=== PATIENT | female | born 1975 | race Caucasian/White ===

== ENCOUNTER 2018-11-06 13:03 | Emergency (ER) | payer BC ==
[2018-11-06 13:14] VITALS: BP 139/91
--- NOTE | 2018-11-06 14:19 | UC ---
Respiratory Complaint HPI - HPI Summary HPI Summary: 43 y/o female presents to the urgent care c/o rib rolly vs ruq pain x 2 weeks - History of Current Complaint Chief Complaint: UCGeneralIllness Stated Complaint: RIB COMPLAINT Time Seen by Provider: 11/06/18 14:17 Hx Obtained From: Patient Hx Last Menstrual Period: 08/26/16 Pain Intensity: 8 - Allergies/Home Medications Allergies/Adverse Reactions: Allergies Allergy/AdvReac Type Severity Reaction Status Date / Time aspirin Allergy rash Verified 11/06/18 13:15 swelling neomycin Allergy Swelling Verified 11/06/18 13:15 ENVIRONMENTAL/SEASONAL Allergy SNEEZING, Uncoded 11/06/18 13:15 ITCHING WATERY EYES, RUNNY NOSE PMH/Surg Hx/FS Hx/Imm Hx - Surgical History Surgical History: Yes Surgery Procedure, Year, and Place: 2006 , [facility], breast augmentation - Family History Known Family History: Positive: Unknown, Cardiac Disease, Hypertension - Social History Alcohol Use: Occasionally Substance Use Type: None Smoking Status (MU): Heavy Every Day Tobacco Smoker Type: Cigarettes Amount Used/How Often: 1 PPD Length of Time of Smoking/Using Tobacco: 20 YEARS Have You Smoked in the Last Year: Yes Household Exposure Type: Cigarettes Physical Exam Vital Signs: Initial Vital Signs Temp 98 F 11/06/18 13:11 Pulse 105 11/06/18 13:11 Resp 20 11/06/18 13:11 BP 139/91 11/06/18 13:11 Pulse Ox 100 11/06/18 13:11 UC Diagnostic Evaluation - Laboratory O2 Sat by Pulse Oximetry: 100 Discharge - Discharge Plan Referrals: Hannah Friend NP [Primary Care Provider] -
--- NOTE | 2018-11-06 14:33 | UC ---
Cardiac HPI - HPI Summary HPI Summary: 43 y/o female presents to the urgent care c/o RT side anterior rib pain for the past 2 weeks. Pt reports pain has increase w/ the days specially w/ certain movements, coughing or deep breathing . Pain is usually dull, but when she rolls over night pain is sharp and stabbing. Pt has Hx of breast implants. Pt denies any trauma, fever, URI, cough, SOB, difficulty breathing, chest pain, abdominal pain, N/V/D. She doesn't like to take medications for pain, She has taking only children's Motrin 15ml PO yesterday. - History of Current Complaint Chief Complaint: UCGeneralIllness Stated Complaint: RIB COMPLAINT Time Seen by Provider: 11/06/18 14:17 Hx Obtained From: Patient Hx Last Menstrual Period: 08/26/16 Onset/Duration: Gradual Onset, Lasting Weeks - 2 weeks, Still Present, Worse Since - 2 days Timing: Intermittent Episodes Lasting: - seconds Initial Severity: Mild Current Severity: Moderate Pain Intensity: 8 - w/ movement Chest Pain Location: Right Anterior - rib pain exacerbated w/ movement, cough or deep breathing Character: Dull/Aching, Sharp/Stabbing - at times w/ certain movements Aggravating Factor(s): Movement, Deep Breaths Alleviating Factor(s): Rest, OTC Meds Associated Signs & Symptoms: Negative: Chest Pain, Headaches, Numbness, Tingling , SOB, Nausea/Vomiting, Palpitations, Cough, Back Pain, Abdominal Pain - Risk Factors Pulmonary Embolism Risk Factors: Negative Cardiac Risk Factors: Negative Atrial Fibrillation: Negative TAD Risk Factors: Negative - Allergy/Home Medications Allergies/Adverse Reactions: Allergies Allergy/AdvReac Type Severity Reaction Status Date / Time aspirin Allergy rash Verified 11/06/18 13:15 swelling neomycin Allergy Swelling Verified 11/06/18 13:15 ENVIRONMENTAL/SEASONAL Allergy SNEEZING, Uncoded 11/06/18 13:15 ITCHING WATERY EYES, RUNNY NOSE PMH/Surg Hx/FS Hx/Imm Hx Previously Healthy: Yes Respiratory History: Asthma - Surgical History Surgical History: Yes Surgery Procedure, Year, and Place: 2006 , [facility], breast augmentation - Family History Known Family History: Positive: Unknown, Cardiac Disease, Hypertension - Social History Occupation: Employed Full-time Lives: With Family Alcohol Use: Occasionally Substance Use Type: None Smoking Status (MU): Heavy Every Day Tobacco Smoker Type: Cigarettes Amount Used/How Often: 1 PPD Length of Time of Smoking/Using Tobacco: 20 YEARS Have You Smoked in the Last Year: Yes Household Exposure Type: Cigarettes Review of Systems All Other Systems Reviewed And Are Negative: Yes Constitutional: Positive: Negative Skin: Positive: Other - discrete swelling on the anterior Rt side mid rib Eyes: Positive: Negative ENT: Positive: Negative Respiratory: Positive: Negative Cardiovascular: Positive: Negative Gastrointestinal: Positive: Negative Genitourinary: Positive: Negative Motor: Positive: Negative Neurovascular: Positive: Negative Musculoskeletal: Positive: Other: - RT side anterior mid rib pain Neurological: Positive: Negative Psychological: Positive: Negative Is Patient Immunocompromised?: No Physical Exam - Summary Physical Exam Summary: Vital Signs Reviewed: Yes General: well developed, well nourished female sitting in the examining table w/ o any apparent distress Eyes: Positive: Conjunctiva Clear - PERRLA, EOMI, fundi grossly normal ENT: Positive: Normal ENT inspection, Hearing grossly normal, Pharynx normal, Nasal congestion - edematous and erythematous nasal mucosa, Nasal drainage - yellowish drainage, TMs normal. Negative: Tonsillar swelling, Tonsillar exudate Neck: Positive: Supple, Nontender, No Lymphadenopathy Respiratory: no orthopnea or dyspnea. Able to speak in full sentences, no retractions or accessory muscle use, no tripod position, stridor, or head bobbing. Positive breath sounds bilaterally. no wheezing, and rhonchi on b/L lungs, no crackles or rales. Point tenderness over the mid anterior rib #9-10 w / mild swelling, no echymosis or bruising observed. Cardiovascular: Positive: RRR, No Murmur, Pulses Normal, Brisk Capillary Refill Abdomen Description: Positive: Nontender, No Organomegaly, Soft. Negative: CVA Tenderness (R), CVA Tenderness (L) Bowel Sounds: Positive: Present Musculoskeletal Exam: Normal Musculoskeletal: Positive: Strength Intact, ROM Intact, No Edema Neurological Exam: Normal Psychological Exam: Normal Skin Exam: Normal Triage Information Reviewed: Yes Vital Signs: Initial Vital Signs Temp 98 F 11/06/18 13:11 Pulse 105 11/06/18 13:11 Resp 20 11/06/18 13:11 BP 139/91 11/06/18 13:11 Pulse Ox 100 11/06/18 13:11 - Assessment/Plan Course Of Treatment: 43 y/o female presents to the urgent care c/o RT side anterior rib pain for the past 2 weeks. Pt reports pain has increase w/ the days specially w/ certain movements, coughing or deep breathing . Pain is usually dull, but when she rolls over night pain is sharp and stabbing. Pt has Hx of breast implants. Pt denies any trauma, fever, URI, cough, SOB, difficulty breathing, chest pain, abdominal pain, N/V/D. She doesn't like to take medications for pain, She has taking only children's Motrin 15ml PO yesterday. Hx obtained. Pt is hemodynamically stable. RT Rib and Chest X-ray ordered to r/ o fracture. Impression:negative for fracture or pneumothorax as per radiologist. Pt Rx Ibuprofen PO and advised to f/u w/ her PCP or her plastic surgeon DR Soto since Hx of breast implants 2 years ago. D/C instructions explained. Pt's BP is elevated today advised to decrease salt in diet, monitor BP and f/u with PCP for further management. Pt understood and agreed w/ plan of care. left clinic ambulating and hemodynamically stable. - Differential Diagnoses - Chest Pain Differential Diagnosis/HQI/PQRI: Chest Wall - pain,, Lower Respiratory Infection , Pulmonary Embolism, Other: - costochondritis, rib fracture - Clinical Impression Provider Diagnosis: Rib pain on right side, Contusion of rib on right side, Elevated BP without diagnosis of hypertension Discharge - Sign-Out/Discharge Documenting (check all that apply): Patient Departure - D/C home All imaging exams completed and their final reports reviewed: Yes - Discharge Plan Condition: Stable Disposition: HOME Prescriptions: Ibuprofen TAB* [Motrin TAB* 600 MG] 600 mg PO Q6H PRN #30 tab PRN Reason: Pain Patient Education Materials: Low-Sodium Diet (ED), Rib Contusion (ED) Referrals: Hannah Friend, FIELD ENUMERATOR [Primary Care Provider] - 3 Days Additional Instructions: 1-Please take ibuprofen PO q6-8hrs prn as instructed after meals to alleviate pain and swelling. rest and avoid strenuous exercise or heavy lifting. Take deep breaths once in a while to expand lungs 2--If symptoms do not improve or worsen please f/u w/ your PCP or your Plastic surgeon DR Soto in 3 days sicne you have Hx of breast implants for further evaluation and treatment. 3-Your BP is elevated today. please decrease salt in your diet, monitor BP and if it continues to be elevated please f/u with your PCP for further management - Billing Disposition and Condition Condition: STABLE Disposition: Home
== END 2018-11-06 16:07 | disposition home or self-care (01) ==
LOC: UCEAST 13:03
DX: R07.81 Pleurodynia (principal); R03.0 Elevated blood-pressure reading, without diagnosis of hypertension; S20.211A Contusion of right front wall of thorax, initial encounter; X58.XXXA Exposure to other specified factors, initial encounter; Y93.9 Activity, unspecified; Y92.9 Unspecified place or not applicable; F17.210 Nicotine dependence, cigarettes, uncomplicated
CPT/HCPCS: 99212; G0463

== ENCOUNTER 2019-05-20 13:22 | Emergency (ER) | payer BC ==
--- NOTE | 2019-05-20 15:52 | UC ---
Skin Complaint HPI - HPI Summary HPI Summary: 43 y/o female presents to the urgent care c/o Wound on right leg- for one week. Now swelling and red with discharge. - History of Current Complaint Chief Complaint: UCLowerExtremity Time Seen by Provider: 05/20/19 15:27 Stated Complaint: WOUND ON LEG Hx Obtained From: Patient Hx Last Menstrual Period: 04/20/19 Pain Intensity: 4 - Allergy/Home Medications Allergies/Adverse Reactions: Allergies Allergy/AdvReac Type Severity Reaction Status Date / Time aspirin Allergy rash Verified 05/20/19 15:11 swelling neomycin Allergy Swelling Verified 05/20/19 15:11 ENVIRONMENTAL/SEASONAL Allergy SNEEZING, Uncoded 11/06/18 13:15 ITCHING WATERY EYES, RUNNY NOSE Home Medications: Home Medications Sertraline* [Zoloft*] 25 mg PO DAILY 05/20/19 [History Confirmed 05/20/19] PMH/Surg Hx/FS Hx/Imm Hx Previously Healthy: Yes Respiratory History: Asthma Other GI/ History: IBS Psychological History: Depression - Surgical History Surgical History: Yes Surgery Procedure, Year, and Place: 2006 , [facility], breast augmentation - Family History Known Family History: Positive: Cardiac Disease, Hypertension - Social History Occupation: Employed Full-time Lives: With Family Alcohol Use: Occasionally Substance Use Type: None Smoking Status (MU): Heavy Every Day Tobacco Smoker Type: Cigarettes Amount Used/How Often: 1 PPD Length of Time of Smoking/Using Tobacco: 20 YEARS Have You Smoked in the Last Year: Yes Household Exposure Type: Cigarettes Physical Exam Vital Signs: Initial Vital Signs Temp 98.4 F 05/20/19 15:07 Pulse 82 05/20/19 15:07 Resp 12 05/20/19 15:07 BP 126/87 05/20/19 15:07 Pulse Ox 97 05/20/19 15:07 Course/Dx - Differential Diagnoses - Skin Complaint Differential Diagnoses: Abscess, Cellulitis, Contact Dermatitis, Local Allergic Reaction, MRSA - Diagnoses Provider Diagnosis: Cellulitis of right lower leg Discharge - Sign-Out/Discharge Documenting (check all that apply): Patient Departure - D/C home All imaging exams completed and their final reports reviewed: No Studies - Discharge Plan Condition: Stable Disposition: HOME Prescriptions: Cephalexin CAP* [Keflex CAP*] 500 mg PO TID #21 cap Mupirocin 2% OINT* [Bactroban 2 % Oint*] 1 applic TOPICAL BID #1 tube Patient Education Materials: Cellulitis (ED) Referrals: Hannah Friend, INTERNATIONAL TRAVEL CONSULTANT [Primary Care Provider] - 3 Days Additional Instructions: 1-Please take full course of Antibiotic as directed. Take yogurts w/ probiotics or culturelle to protect your GI system 2- If redness and swelling doubles in size after 48 hrs s of taking antibiotic and fever develops please go to the ER immediately. 3-Avoid standing for long periods of time or flexing your foot, keep it elevated and keep wound clean and dry. Apply Bactroban topical cream as directed 4-Please F/u with your PCP in 3 days if symptoms are not improving for further evaluation and treatment. - Billing Disposition and Condition Condition: STABLE Disposition: Home - Attestation Statements Provider Attestation: I was available for consult. This patient was seen by the SALVDAOR. The patient was not presented to, seen by, or examined by me. -Hortencia
[2019-05-20 16:35] VITALS: BP 131/83
--- NOTE | 2019-05-20 21:55 | UC ---
- Progress Note Progress Note: call from lab wound + staph neg MRSA pt on keflex no change clarence 05/20/19 Course/Dx - Diagnoses Provider Diagnoses: Cellulitis of right lower leg Discharge - Sign-Out/Discharge Documenting (check all that apply): Post-Discharge Follow Up All imaging exams completed and their final reports reviewed: No Studies - Discharge Plan Condition: Stable Disposition: HOME Prescriptions: Cephalexin CAP* [Keflex CAP*] 500 mg PO TID #21 cap Mupirocin 2% OINT* [Bactroban 2 % Oint*] 1 applic TOPICAL BID #1 tube Patient Education Materials: Cellulitis (ED) Referrals: Hannah Friend, HEARING HEALTHCARE PRACTITIONER [Primary Care Provider] - 3 Days Additional Instructions: 1-Please take full course of Antibiotic as directed. Take yogurts w/ probiotics or culturelle to protect your GI system 2- If redness and swelling doubles in size after 48 hrs s of taking antibiotic and fever develops please go to the ER immediately. 3-Avoid standing for long periods of time or flexing your foot, keep it elevated and keep wound clean and dry. Apply Bactroban topical cream as directed 4-Please F/u with your PCP in 3 days if symptoms are not improving for further evaluation and treatment. - Billing Disposition and Condition Condition: STABLE Disposition: Home
--- NOTE | 2019-05-22 09:41 | UC ---
- Progress Note Progress Note: Right lower leg wound culture results: MRSA negative, staph aureus positive Gram stain: No neutrophils observed, 2+ gram positive cocci, 1+ gram-positive bacilli Preliminary culture report: Strep dysgalactiae(group C) 3+ Patient is already on Keflex and topical mupirocin No change in plan. Course/Dx - Diagnoses Provider Diagnoses: Cellulitis of right lower leg Discharge - Sign-Out/Discharge Documenting (check all that apply): Post-Discharge Follow Up All imaging exams completed and their final reports reviewed: No Studies - Discharge Plan Condition: Stable Disposition: HOME Prescriptions: Cephalexin CAP* [Keflex CAP*] 500 mg PO TID #21 cap Mupirocin 2% OINT* [Bactroban 2 % Oint*] 1 applic TOPICAL BID #1 tube Patient Education Materials: Cellulitis (ED) Referrals: Hannah Friend, CONFERENCE CENTER MANAGER [Primary Care Provider] - 3 Days Additional Instructions: 1-Please take full course of Antibiotic as directed. Take yogurts w/ probiotics or culturelle to protect your GI system 2- If redness and swelling doubles in size after 48 hrs s of taking antibiotic and fever develops please go to the ER immediately. 3-Avoid standing for long periods of time or flexing your foot, keep it elevated and keep wound clean and dry. Apply Bactroban topical cream as directed 4-Please F/u with your PCP in 3 days if symptoms are not improving for further evaluation and treatment. - Billing Disposition and Condition Condition: STABLE Disposition: Home
== END 2019-05-20 16:40 | disposition home or self-care (01) ==
LOC: UCEAST 13:22
DX: L03.115 Cellulitis of right lower limb (principal); B95.61 Methicillin susceptible Staphylococcus aureus infection as the cause of diseases classified elsewhere; B95.4 Other streptococcus as the cause of diseases classified elsewhere; F32.9 Major depressive disorder, single episode, unspecified; F17.210 Nicotine dependence, cigarettes, uncomplicated
CPT/HCPCS: 87070; 87077; 87186; 87205; 87640; 87641; 99211; G0463

== ENCOUNTER 2021-12-27 18:38 | Inpatient (IN) ==
[2021-12-27 19:56] LABS: ABS Basophils 0.1 10^3/ul (0-0.2); ABS Eosinophils 0.2 10^3/ul (0-0.6); ABS Monocytes 0.6 10^3/ul (0-0.8); ABS Neutrophils 6.7 10^3/ul (1.5-7.7); Eosinophil % 1.8 %; Hematocrit 43 % (35-47); Lymphocyte % 20.8 %; Mean Corpuscular HGB Conc 33 g/dL (31-36); Mean Corpuscular Hemoglobin 31 pg (27-31); Mean Corpuscular Volume 95 fL (80-97); Mean Platelet Volume 7.7 fL (7.4-10.4); Nucleated Red Blood Cells % 0.1; Platelet Count 408 10^3/uL (150-450); Red Cell Distribution Width 17 % (10-15); White Blood Count 9.5 10^3/uL (3.5-10.8)
[2021-12-27 20:11] LABS: Influenza A Molecular Negative (Negative); Influenza B Molecular Negative (Negative)
[2021-12-27 20:14] LABS: Rapid COVID-19 Molecular Undetected (Undetected)
[2021-12-27 20:31] LABS: Albumin 4.1 g/dL (3.2-5.2); Albumin/Globulin Ratio 1.5 (1-3); Calcium 8.8 mg/dL (8.6-10.3); Globulin 2.8 g/dL (2-4); Potassium 4.3 mmol/L (3.5-5.0); Total Bilirubin 0.3 mg/dL (0.2-1.0); Total Protein 6.9 g/dL (6.4-8.9); eGFR CKD-EPI 87.3 (>60)
[2021-12-27] MEDS ORDERED: Iohexol 350 (CONTRAST) 500 ML MDV IV ONE (20:36)
[2021-12-27] MEDS ORDERED: Albuterol/Ipratropium NEB.SOL (2.5/0.5 MG) 3 ML NEB.SOLN INH ONE (22:04)
[2021-12-27] MEDS ORDERED: Morphine 4 MG/ML VIAL (1 ml) IV ONE (23:06)
[2021-12-28] MEDS: Mometasone/Formoter 200/5 MDI INH SCH ×3 (01:07→19:42)
[2021-12-28] MEDS: oxyCODONE/Acetamin 5/325 mg TAB PO PRN ×3 (03:19→17:15)
[2021-12-28] MEDS: Lidocaine PATCH 5% PATCH TRANSDERM SCH (08:47)
[2021-12-28] MEDS: Citalopram SOLN ORALSYR 2 MG/ML PO SCH (08:47)
[2021-12-28] MEDS: Albuterol HFA INHALER 8 gm MDI INH PRN ×2 (10:46→18:59)
[2021-12-28] MEDS ORDERED: methylPREDNISolone 125 mg 2 ML VIAL IV ONE (17:07)
[2021-12-28] MEDS ORDERED: Albuterol/Ipratropium NEB.SOL (2.5/0.5 MG) 3 ML NEB.SOLN INH PRN (17:08)
[2021-12-28] MEDS ORDERED: methylPREDNISolone 125 mg 2 ML VIAL ONE (17:14)
[2021-12-28] MEDS: Lidocaine Patch REMOVE NOTE PATCH OFF SCH (21:02)
[2021-12-29] MEDS: oxyCODONE/Acetamin 5/325 mg TAB PO PRN (04:25)
[2021-12-29] MEDS: Albuterol HFA INHALER 8 gm MDI INH PRN ×2 (04:27→08:30)
[2021-12-29] MEDS: Mometasone/Formoter 200/5 MDI INH SCH ×2 (08:30→19:42)
[2021-12-29] MEDS: Lidocaine PATCH 5% PATCH TRANSDERM SCH (09:42)
[2021-12-29] MEDS: Citalopram SOLN ORALSYR 2 MG/ML PO SCH (09:46)
[2021-12-29] MEDS: Albuterol HFA INHALER 8 gm MDI INH SCH ×3 (15:34→22:52)
[2021-12-29] MEDS: methylPREDNISolone SOD 40 mg/ml 1 ml VIAL IV SCH ×2 (16:37→23:24)
[2021-12-29] MEDS: Lidocaine Patch REMOVE NOTE PATCH OFF SCH (21:46)
[2021-12-30] MEDS: Albuterol HFA INHALER 8 gm MDI INH SCH ×4 (02:25→16:12)
[2021-12-30] MEDS: methylPREDNISolone SOD 40 mg/ml 1 ml VIAL IV SCH (07:59)
[2021-12-30] MEDS ORDERED: methylPREDNISolone SOD 40 mg/ml 1 ml VIAL IV SCH (08:00)
[2021-12-30] MEDS: Mometasone/Formoter 200/5 MDI INH SCH (08:21)
[2021-12-30] MEDS: Lidocaine PATCH 5% PATCH TRANSDERM SCH (08:43)
[2021-12-30] MEDS: Citalopram SOLN ORALSYR 2 MG/ML PO SCH (08:44)
[2021-12-30 11:55] VITALS: BP 122/76
== END 2021-12-30 17:15 | disposition home or self-care (01) | DRG 347 ==
LOC: ED 18:38 → EDHOLD 18:38 → SUATTDRO 12-28 00:04 → EDHOLD 12-28 02:10 → SSU 12-28 03:13
PROVIDERS: ADMIT Internal Medicine; ATTEND Hospitalist